=== PATIENT | male | born 1945 | race Caucasian/White ===

== ENCOUNTER 2017-12-14 07:43 | Emergency (ER) | payer MEDICARE, BC ==
--- NOTE | 2017-12-14 07:47 | UC ---
General HPI - HPI Summary HPI Summary: 71 yo gentleman c/o "chest pains," pain woke him approx 2:30am. Took antacid, followed by asa. Also took omeprazole prior to arrival. No sob perse. Pain possibly modified with position, but doesn't alleviate. No n/v/d reported. No recent melena or brbrpr. Notes hx LGIB in August 2017, attritubited to nsaids, but none recently. No p/d/w. No loc, diaphoresis. Drove himself to [facility]. + Hx Aortic stenosis, followed by cardiology at [facility]. No immediate plans for surgery. three baby 3:30am and three baby approx 06:45am. No old ekg. - History of Current Complaint Stated Complaint: CHEST PAINS Time Seen by Provider: 12/14/17 07:44 Hx Obtained From: Patient - Allergy/Home Medications Allergies/Adverse Reactions: Allergies Allergy/AdvReac Type Severity Reaction Status Date / Time codeine Allergy Altered Verified 12/14/17 07:55 Mental Status Home Medications: Home Medications Aspirin 81 mg CHEW TAB* [Aspirin Low Dose TAB*] 243 mg PO DAILY 12/14/17 [ History Confirmed 12/14/17] Hydrochlorothiazide TAB* [Hydrodiuril TAB*] 25 mg PO DAILY 12/14/17 [History Confirmed 12/14/17] PMH/Surg Hx/FS Hx/Imm Hx Previously Healthy: No - Aortic stenosis (followed at [facility]., GI bleed 2017 d/t nsaid - Surgical History Surgical History: Yes - Upper ext orthop surg 2015. Surgery Procedure, Year, and Place: 10/2014 [facility] [place] - Social History Alcohol Use: Daily Alcohol Amount: 2-3/DAY Substance Use Type: None Smoking Status (MU): Never Smoked Tobacco Have You Smoked in the Last Year: No Household Exposure Type: Cigarettes Review of Systems Constitutional: Negative Skin: Negative Eyes: Negative ENT: Negative Respiratory: Other - see hpi Cardiovascular: Other - see hpi Gastrointestinal: Other - see hpi Genitourinary: Negative Motor: Negative Neurovascular: Negative Musculoskeletal: Negative Neurological: Negative Psychological: Negative Is Patient Immunocompromised?: No All Other Systems Reviewed And Are Negative: Yes Physical Exam Triage Information Reviewed: Yes Appearance: Well-Appearing, Well-Nourished Vital Signs Reviewed: Yes Eye Exam: Normal ENT Exam: Normal - grossly normal ENT: Positive: Pharynx normal Neck exam: Normal Neck: Positive: Supple, Nontender Respiratory Exam: Normal Respiratory: Positive: Chest non-tender, Lungs clear, Normal breath sounds, No respiratory distress, No accessory muscle use Cardiovascular Exam: Other - + LSB syst murmur c/w hs . Radial pulses present and equal. BP pulses present and equal. Dist ext (upper and lower warm to touch). Cardiovascular: Positive: RRR Abdominal Exam: Normal Abdomen Description: Positive: Nontender Musculoskeletal Exam: Normal Musculoskeletal: Positive: Strength Intact, ROM Intact Neurological Exam: Normal - grossly nonfocal Psychological Exam: Normal - conversing easily and appropriately Skin Exam: Normal - nondiaphoretic. No visible or reported rash. Course/Dx - Course Course Of Treatment: Reviewed EKG with pt. Reviewed condition / coa / tx plan ( ie - recommend transfer to ED for immediate evaluation and management). EMS notified. I spoke with Deisy Sam NP at [facility]. EKG - SR at 77 bpm. Probable LAE. + LVH. "Asterior ST elevation, probably due to LVH.". No old EKG for comp. pr 152. IV / O2 established. NTG sl x 1. EMS arrived 08:10. Questions as posed answered to the best of my ability. Per pt's request, Ms. Collier's Мария, was notified by RN via telephone. - Differential Dx - Multi-Symptom Provider Diagnoses: Chest pain / Epigastric pain Discharge - Sign-Out/Discharge Documenting (check all that apply): Patient Departure All imaging exams completed and their final reports reviewed: No Studies - Discharge Plan Condition: Guarded Disposition: TRANS HIGHER LVL OF CARE FAC Referrals: Winston Gauthier MD [Primary Care Provider] - - Billing Disposition and Condition Condition: GUARDED Disposition: Trans Higher Lvl of Care Fac
[2017-12-14] MEDS ORDERED: Nitroglycerin TAB 0.4 MG* 0.4 MG TAB SL ONE (08:02)
[2017-12-14 08:06] VITALS: BP 199/102
== END 2017-12-14 08:21 | disposition short-term general hospital (02) ==
LOC: UCCORT 07:43
DX: R07.9 Chest pain, unspecified (principal); R10.9 Unspecified abdominal pain; Z79.82 Long term (current) use of aspirin; Z88.5 Allergy status to narcotic agent; Z86.79 Personal history of other diseases of the circulatory system
CPT/HCPCS: 93005; 99213; A9270-GY; G0463